=== PATIENT | female | born 1980 | race Caucasian/White ===

== ENCOUNTER 2016-06-04 18:12 | Emergency (ER) | payer BC ==
[2016-06-04 18:28] VITALS: TEMP 96.7
[2016-06-04] MEDS ORDERED: HYDROmorphone 2 MG/1 ML IVP ONE ×2 (18:29→20:16)
[2016-06-04] MEDS ORDERED: ONDANSETRON 4 MG/2 ML VIAL IVP ONE (18:29)
[2016-06-04] MEDS ORDERED: Sodium Chloride 0.9% 1,000 ML PRIMARY IV ONE (18:29)
--- NOTE | 2016-06-04 18:36 | PDOC ---
Female Problem HPI - General Chief Complaint: Genitourinary Complaint Stated Complaint: LEFT FLANK PAIN/PAINFUL URINATION AND NAUSEA Date Seen by Provider: 06/04/16 Time Seen by Provider: 18:31 Source: POSITIVE: Patient Exam Limitations: POSITIVE: No limitations Nurse's Notes Reviewed & Considered: Yes - History of Present Illness Initial Comments: Patient comes in tonight with complaints of left-sided CVA pain and dysuria with hematuria. She with ongoing history of urological problems. She was seen here in the emergency room last February and followed up with a urologist. She states that he had to remove kidney stones. She saw her primary care physician 12 days ago and was started on a 10 day course of Augmentin which she has finished. She continues to have pain, dysuria, chills, nausea. Body Location Affected: REPORTS: Abdomen, Back Timing: REPORTS: Constant Duration: Unknown Severity: Severe Quality: REPORTS: "Pain", Sharpness, Stabbing, Throbbing, Tenderness Context: REPORTS: Other (Known urological problems including nephro lithiasis, and chronic urinary tract infections with hematuria.) Location of Pain: REPORTS: Left, Abdominal Pain, Low Back Pain, Flank Pain Sexual History: REPORTS: Active Urinary Symptoms: REPORTS: Blood in Urine, Frequent Urination, Discomfort w/ Urination, Urinary Urgency, Painful Urination Similar Symptoms Previously: Yes Recent Care Received: REPORTS: Recently Seen, Treated by MD Any Prior Injuries Related to Current Complaint?: Yes (nephrolithiasis) - Patient Home Medications Home Medications: Home Medications Albuterol Sulfate [Proair Hfa] 2 puff INH Q4H 02/06/16 oxyCODONE/APAP 5/325 Tab [Percocet 5/325 Tab] 2 tab PO Q6H PRN 02/06/16 - Patient Allergies Allergies/Adverse Reactions: Allergies Allergy/AdvReac Type Severity Reaction Status Date / Time fentanyl Allergy NOT Verified 06/04/16 18:16 APPLICABLE Latex, Natural Rubber Allergy NOT Verified 06/04/16 18:16 APPLICABLE Past Medical History - heen HEENT History: Denies History Cardiovascular History: Denies History Respiratory History: Asthma Gastrointestinal History: Other (please comment) Additional Gastrointestinal History: APPY. SOFIYA Genitourinary History: Kidney Stones, Other (please comment) Additional Genitourinary History: CHRONIC KIDNEY INFECTIONS. RENAL STENTING. LITHO Endocrine History: Denies History Musculoskeletal History: Denies History Neurological History: Denies History Blood Disorders: Denies History Psychiatric History: Denies History History of Sexually Transmitted Diseases: No Female Reproductive History: Endometriosis Obstetrical History: Denies History Cancer History: Denies History In Past Year Been Physically Harmed or Verbally Threatened: No History of MDRO: No History of Other Communicable Diseases: No Tobacco Use: Current Every Day Smoker Alcohol Use: None Substance Use Type: None Previous Surgical History: Yes Type / Date of Surgery: HYSTER. LITHO. SOFIYA. MULTIPLE RENAL STENTS. APPY Anesthesia Reactions: No Malignant Hyperthermia: No Significant Family History: No pertinent family hx ROS - Limitations ROS Limitations: No Limitations Constitution: REPORTS: Chills, Diaphoresis Cardiovascular: REPORTS: Denies Cardiac Symptoms Respiratory: REPORTS: Denies Resp Symptoms Neurological: REPORTS: Denies Neuro Symptoms Gastrointestinal: REPORTS: Abdominal Pain, Nausea Endocrine: REPORTS: Denies Symptoms Musculoskeletal: REPORTS: Back Pain Genitourinary: REPORTS: Dysuria, Flank Pain, Hematuria Eyes: REPORTS: Denies Symptoms ENT: REPORTS: Denies Symptoms Skin: REPORTS: Denies Skin Symptoms Lympathic: REPORTS: Denies Lympathic Symptoms Immunologic: POSITIVE: Denies Symptoms Psychiatric: POSITIVE: Denies Psych Symptoms Female Genitourinary Exam - General Appearance General Appearance: POSITIVE: Alert, Cooperative, No Evidence of Trauma, Anxious , Moderate Distress - HEENT HEENT: POSITIVE: Head Inspection Nml, Eyes Inspection Nml, Ears Inspection Nml, Nose Inspection Nml, PERRL, EOMI - Neck Neck: POSITIVE: Normal Inspection, No Apparent Injury - Respiratory Respiratory: POSITIVE: No Respiratory Distress, Breath Sounds Normal, Chest Non- Tender - Cardiovascular Cardiovascular: POSITIVE: Regular Rate and Rhythm, Heart Sounds Normal - Abdomen Abdomen: POSITIVE: Soft, Normal Bowel Sounds, Tenderness (Suprapubic tenderness and sensation of pressure to palpation.) - Back Back: POSITIVE: CVA Tenderness (L) - Skin Skin: POSITIVE: Intact, Normal For Race, Warm, Dry, No Rash - Extremities Extremity: Non-Tender: (All Extremities), Normal ROM: (All Extremities), Normal Inspection: (All Extremities), Pelvis Stable: (All Extremities) - Neurological / Psychological Neurological: POSITIVE: Affect Apporpriate, Oriented X3 Female Genitourinary Progress - Results Reviewed by me Xrays/CTs/US Reviewed by me: Yes Discussed with Radiologist: Yes Lab Results:: Laboratory Results 06/04/16 Range/Units 18:53 WBC 12.96 H (4.8-10.8) 10^3/uL RBC 4.74 (4.20-5.40) 10^6/uL Hgb 15.3 (12.0-16.0) g/dL Hct 46.2 (37.0-47.0) % MCV 97.5 (81-99) FL MCH 32.3 H (27-31) PG MCHC 33.1 (33-37) g/dL RDW Std Deviation 51.5 H (39-50) fL RDW Coeff of Muna 14.7 H (11.5-14.5) % Plt Count 323 (140-350) 10*3/uL MPV 9.7 (7.4-12.2) FL Immature Gran % (Auto) 0.5 (0-5) % Neut % (Auto) 77.6 (50-80) % Lymph % (Auto) 15.7 (10-50) % Citrus % (Auto) 5.2 (5-15) % Eos % (Auto) 0.8 (0-8) % Baso % (Auto) 0.2 (0-1) % Immature Gran # (Auto) 0.07 10*3/UL Neut # (Auto) 10.07 10*3/UL Lymph # (Auto) 2.03 10*3/uL Citrus # (Auto) 0.67 (0.3-0.8) 10*3/UL Eos # (Auto) 0.10 10*3/UL Baso # (Auto) 0.02 10*3/UL WBC Morphology Comment Normal morphology (NORM) Plt Morphology Comment Normal morphology (NORM) RBC Morph Comment Normal morphology (NORM) Sodium 141 (135-145) meq/L Potassium 3.4 L (3.8-5.2) meq/L Chloride 117 H (98-112) meq/L Carbon Dioxide 13 L (23-33) meq/L Anion Gap 11 (5-20) BUN 15 (7-22) mg/dL Creatinine 1.1 (0.50-1.20) mg/dL Estimated GFR 56 (>60 ml/min/1.73m(2)) BUN/Creatinine Ratio 13.63 (6-20) Glucose 151 H (78-110) mg/dL Calculated Osmolality 295.0 H (267-292) mOsm/kg Calcium 9.5 (8.7-10.7) mg/dL Total Bilirubin 0.4 (0.3-1.2) mg/dL AST 15 (8-39) IU/L ALT 8 L (9-52) IU/L Alkaline Phosphatase 147 H (38-126) IU/L C-Reactive Protein < 0.5 (0.0-0.9) mg/dL Total Protein 7.7 (6.1-8.0) g/dL Albumin 4.6 (3.5-4.8) g/dL Globulin 3.1 (2.50-4.10) g/dL Albumin/Globulin Ratio 1.40 (1.3-2.0) mg/g Ur Collection Type Clean catch urine Urine Color Yellow Urine Clarity Slightly cloudy (CLEAR) Urine pH 6.5 (5.0-8.5) Ur Specific [place] 1.020 (1.005-1.030) Urine Protein 100 (NEG) mg/dl Urine Glucose (UA) Negative (NEG) mg/dL Urine Ketones Negative (NEG) Urine Occult Blood Moderate H (NEG) Urine Nitrate Negative (NEG) Urine Bilirubin Negative (NEG) Urine Urobilinogen 0.2 (0.2) EU/dL Ur Leukocyte Esterase Negative (NEG) Urine RBC >100 (NONE) /hpf Urine WBC 8-10 (NONE) Ur Squamous Epith Cells Rare (NONE) Ur Renal Epithelial Cell None (NONE) Urine Crystals None Urine Bacteria Moderate (NONE) Urine Casts None (NONE) Urine Mucus None (NONE) Urine Trichomonas None (NONE) Urine Yeast None (NONE) Ur Culture Indicated? Culture set - Patient's Progress Pain Medication Addressed: POSITIVE: Yes School/Work Release Addressed: POSITIVE: Yes Re-Examine Time: 21:11 Status: POSITIVE: Improved MDM / ED Course: The patient was examined, an IV started, blood drawn and sent to the lab for studies, ultrasound obtained. IV Dilaudid, Zofran, and normal saline. Her pain significantly improved. Findings: CBC shows a slight elevation of her white count to 13, compressive metabolic panel is unremarkable, urinalysis shows a contaminated pattern. Ultrasound reveals a normal ultrasound of kidneys and bladder. Next Assessment: Abdominal and flank pain. Differential diagnosis includes #1 cystitis, #2 chronic urinary tract infection subclinical, #3 renal colic. Plan: Discharge home. Follow-up with urology calling tomorrow for follow-up appointment. I do not feel antibiotics are indicated in this patient, particularly if she has a colonized urinary system. - Consult Counseled: POSITIVE: Patient, Family, RE: Lab Results, RE: Radiology Results, RE : DX, RE: Need for F/U Patient Care Time - Estimated PCT Patient Care Time (In Minutes): 30 Vital Signs - Recent Vital Signs Vital Signs: Vital Signs (Last 8 hours) Temp Pulse Resp BP Pulse Ox 06/04/16 18:16 96.7 F L 130 H 20 126/82 92 - VS Reviewed Vital Signs Reviewed: Yes Discharge Clinical Impression: Cystitis, Flank pain Discharge Disposition: Discharged to Home Condition: Stable Patient Instructions Given at Discharge: Pelvic Pain in Women (ED), Interstitial Cystitis (ED)
[2016-06-04 18:56] LABS: BASOPHILS # (AUTO) 0.02 10*3/UL; BASOPHILS % (AUTO) 0.2 % (0-1); EOSINOPHILS % (AUTO) 0.8 % (0-8); HEMATOCRIT 46.2 % (37.0-47.0); HEMOGLOBIN 15.3 g/dL (12.0-16.0); LYMPHOCYTES # (AUTO) 2.03 10*3/uL; MEAN CORPUSCULAR HEMOGLOBIN 32.3 PG (27-31); MEAN CORPUSCULAR HGB CONC 33.1 g/dL (33-37); MEAN CORPUSCULAR VOLUME 97.5 FL (81-99); MEAN PLATELET VOLUME 9.7 FL (7.4-12.2); MONOCYTES # (AUTO) 0.67 10*3/UL (0.3-0.8); MONOCYTES % (AUTO) 5.2 % (5-15); NEUTROPHILS # (AUTO) 10.07 10*3/UL; NEUTROPHILS % (AUTO) 77.6 % (50-80); RED BLOOD COUNT 4.74 10^6/uL (4.20-5.40)
[2016-06-04 19:08] LABS: BLOOD UREA NITROGEN 15 mg/dL (7-22); BUN/CREATININE RATIO 13.63 (6-20); CALCIUM 9.5 mg/dL (8.7-10.7); EST GLOMERULAR FILTRATION 56 (>60 ml/min/1.73m(2)); SERUM ALBUMIN 4.6 g/dL (3.5-4.8)
[2016-06-04 19:12] LABS: CLARITY,URINE SLIGHTLY CLOUDY (CLEAR); COLOR,URINE YELLOW; URINE SAMPLE TYPE CLEAN CATCH URINE
[2016-06-04 19:21] LABS: PH,URINE 6.5 (5.0-8.5); PROTEIN,URINE 100 mg/dl (NEG)
[2016-06-04 19:22] LABS: BILIRUBIN,URINE NEGATIVE (NEG); GLUCOSE, URINE (UA) NEGATIVE (NEG); NITRATE,URINE NEGATIVE (NEG); OCCULT BLOOD,URINE MODERATE (NEG); UROBILINOGEN,URINE 0.2 EU/dL (0.2)
[2016-06-04 19:23] LABS: BACTERIA,URINE MODERATE; RBC,URINE >100 /hpf; SQUAMOUS EPITHELIAL CELL,UR RARE
[2016-06-04 19:26] LABS: PLATELET MORPHOLOGY COMMENT NORMAL MORPHOLOGY (NORM); RBC MORPHOLOGY COMMENT NORMAL MORPHOLOGY (NORM); WBC MORPHOLOGY COMMENT NORMAL MORPHOLOGY (NORM)
[2016-06-04 19:27] LABS: C-REACTIVE PROTEIN < 0.5 mg/dL (0.0-0.9)
--- NOTE | 2016-06-04 20:49 | DI ---
HISTORY: Left flank discomfort. PREVIOUS EXAM: None at this facility. TECHNIQUE: Multiple grayscale and color Doppler sonographic images are obtained through the abdomen. FINDINGS: The pancreas is not well seen. The patient is status post cholecystectomy. The liver is within normal limits. The common bile duct measured 5 mm. Right kidney measured 10.5 cm in length with a normal sonographic appearance. The spleen was grossly normal. The left kidney measured 10.2 cm in length also with a normal sonographic appearance. There is no hyd ronephrosis nor nephrolithiasis. IMPRESSION: 1. Normal abdominal ultrasound. NOTE: The interpreting Radiologist was not present at the time of ultrasound interrogation.
[2016-06-04 21:34] VITALS: RESP 18
== END 2016-06-04 21:28 | disposition home or self-care (01) ==
LOC: ER 18:12
DX: N30.01 Acute cystitis with hematuria (principal); R11.0 Nausea; R10.32 Left lower quadrant pain; R10.12 Left upper quadrant pain; R30.0 Dysuria
CPT/HCPCS: 76700; 80053; 81001; 81003; 85025; 86140; 87077; 87088; 87186; 96361; 96374; 96375; 96376; 99283; J1170; J2405; J7030

== ENCOUNTER 2017-02-01 22:29 | Inpatient (IN) ==
[2017-02-01] MEDS ORDERED: ONDANSETRON 4 MG/2 ML VIAL IVP ONE (22:48)
[2017-02-01] MEDS ORDERED: Sodium Chloride 0.9% 1,000 ML PRIMARY IV ONE (22:48)
[2017-02-01] MEDS ORDERED: MORPHINE SULFATE 4 MG/1 ML IVP ONE (22:48)
[2017-02-01] MEDS ORDERED: NORMAL SALINE 10 ML SYRINGE FLUSH IVP PRN (22:48)
--- NOTE | 2017-02-01 22:50 | PDOC ---
Abdomen/Flank HPI - General Chief Complaint: Genitourinary Complaint Stated Complaint: kidney stone Date Seen by Provider: 02/01/17 Time Seen by Provider: 22:45 Source: POSITIVE: Patient Exam Limitations: POSITIVE: No limitations Nurse's Notes Reviewed & Considered: Yes - History of Present Illness Initial Comments: The patient is a 36-year-old female who presents to the emergency department with complaints of left flank pain and decreased urination. She has a history of kidney stones multiple times in the past. In addition she has had frequent urinary tract infections and kidney infections. She recently just finished a course of antibiotics for urinary tract infection. She reports that she has developed increased left flank pain today. In addition she reports decreased urination today and has not had any significant urine output since about 11:00 this morning. She reports nausea and vomiting which is not too unusual for her. She denies any obvious fever or chills. She has not had any change in bowel movements. - Patient Home Medications Home Medications: Home Medications Albuterol Sulfate [Proair Hfa] 2 puff INH Q4H 02/06/16 oxyCODONE/APAP 5/325 Tab [Percocet 5/325 Tab] 2 tab PO Q6H PRN 02/06/16 Ondansetron HCl [Zofran] 8 mg PO PRN PRN 12/29/16 Zolpidem Tartrate [Ambien] 5 mg PO BEDTIME 12/29/16 diphenhydrAMINE HCl [Benadryl] 25 mg PO PRN PRN 12/29/16 Ciprofloxacin HCl [Cipro] 500 mg PO Q12H #20 tab 12/30/16 HYDROcodone/APAP 10/325 Tab [Wilson 10/325 Tab] 1 tab PO Q4H PRN #20 tab Ondansetron Odt [Zofran ODT] 4 mg SL Q6H PRN #20 tab 12/30/16 Potassium Chloride 20 mEq 20 meq IV QHS #30 bag 12/30/16 - Patient Allergies Allergies/Adverse Reactions: Allergies 3 Allergy/AdvReac Type Severity Reaction Status Date / Time fentanyl Allergy NOT Verified 02/02/17 00:10 APPLICABLE ibuprofen Allergy NOT Verified 02/02/17 00:10 APPLICABLE ketorolac [From Toradol] Allergy NOT Verified 02/02/17 00:10 APPLICABLE Latex, Natural Rubber Allergy NOT Verified 02/02/17 00:10 APPLICABLE Past Medical History - heen HEENT History: Denies History Cardiovascular History: Denies History Respiratory History: Asthma Gastrointestinal History: Other (please comment) Additional Gastrointestinal History: APPY. SOFIYA Genitourinary History: Kidney Stones, Other (please comment) Additional Genitourinary History: CHRONIC KIDNEY INFECTIONS. RENAL STENTING. LITHOTRIPSY Endocrine History: Denies History Musculoskeletal History: Denies History Neurological History: Denies History Blood Disorders: Denies History Psychiatric History: Denies History History of Sexually Transmitted Diseases: No Cancer History: Denies History History of MDRO: No History of Other Communicable Diseases: No Alcohol Use: None In the Past 12 Months, Have Used or Abuse Any Substance: None Previous Surgical History: Yes Type / Date of Surgery: HYSTER. LITHO. SOFIYA. MULTIPLE RENAL STENTS. APPY Anesthesia Reactions: No Malignant Hyperthermia: No Significant Family History: No pertinent family hx Past Medical History Reviewed: Reviewed - No Changes ROS - Limitations ROS Limitations: No Limitations Constitution: DENIES: Chills, Fever Cardiovascular: REPORTS: Denies Cardiac Symptoms Respiratory: REPORTS: Denies Resp Symptoms Neurological: REPORTS: Denies Neuro Symptoms Gastrointestinal: REPORTS: Nausea, Vomitting, Other (Left flank pain) Endocrine: REPORTS: Denies Symptoms Musculoskeletal: REPORTS: Denies MS Symptoms Genitourinary: REPORTS: Other (Decreased urination since 11:00 today) Eyes: REPORTS: Denies Symptoms ENT: REPORTS: Denies Symptoms Skin: DENIES: Rash Abdominal/Flank Pain PE - General Appearance General Appearance: POSITIVE: Alert, Cooperative, No Acute Distress - HEENT HEENT: POSITIVE: Head Inspection Nml - Neck Neck: POSITIVE: Normal Inspection - Respiratory Respiratory: POSITIVE: No Respiratory Distress, Breath Sounds Normal - Cardiovascular Cardiovascular: POSITIVE: Regular Rate and Rhythm, Heart Sounds Normal - Abdomen Abdomen: Soft: (All Quadrants), Normal Bowel Sounds: (All Quadrants), Denies Tenderness: (All Quadrants), No Distention: (All Quadrants) - Back Back: POSITIVE: CVA Tenderness (L). NEGATIVE: CVA Tenderness (R) - Skin Skin: POSITIVE: Intact, No Rash - Extremities Extremity: Normal ROM: (All Extremities), Normal Inspection: (All Extremities) - Neurological Neurological: POSITIVE: Oriented X3, Motor Normal, Sensation Normal Abdomen Progress - Results Reviewed by me Xrays/CTs/US Reviewed by me: Yes Discussed with Radiologist: Yes Radiology Findings: CT scan of the abdomen and pelvis without IV contrast reveals multiple stones in both kidneys, she does have a 3 mm stone in the proximal right ureter with mild hydronephrosis, no obstructive uropathy in the left. No obvious inflammatory change in the pancreas and no other acute findings per radiologist. Lab Results Reviewed by Me: Yes CBC and BMP: 02/01/17 23:10 02/01/17 23:10 - Patient's Progress MDM / ED Course: An IV was established, blood cultures and lactate were drawn with initial IV start. She received morphine 4 mg and Zofran 4 mg IV for pain. Bladder scanner showed greater than a liter of urine in the bladder and a Molina catheter was placed as well. Over 1 L of urine was evacuated from the bladder. This did result in fairly significant pain relief. Her white blood cell count is mildly elevated, her urinalysis reveals moderate bacteria, some white blood cells and some blood. Urine culture is pending. In addition her lipase is elevated over 700, amylase is also elevated. CT scan of the abdomen and pelvis without IV contrast reveals a 3 mm stone in the proximal right ureter with mild hydronephrosis. She has bilateral kidney stones. No obvious inflammatory change in the pancreas, no other acute findings per radiologist. The patient has several issues currently. She did have urinary obstruction and a Molina catheter has been placed. She does have elevated pancreas enzymes with a history of pancreatitis last year. In addition she does have a small stone in the right ureter with mild hydronephrosis. She does not have any right- sided flank pain or tenderness as her pain was mostly on the left side. There is some evidence of infection in the urine as well. She was given Rocephin 2 g IV. Findings were discussed with the patient. Decision was made to admit the patient for further treatment and evaluation. Dr. Stephens has agreed to admit the patient. Patient Care Time - Estimated PCT Patient Care Time (In Minutes): 45 Vital Signs - VS Reviewed Vital Signs Reviewed: Yes Discharge Clinical Impression: Urinary retention, Ureterolithiasis, Pancreatitis, UTI (urinary tract infection ) Discharge Disposition: Admit to Inpatient Condition: Fair Date Decision to Admit to Inpatient: 02/02/17 Time Decision to Admit to Inpatient: 00:20
[2017-02-01 23:26] LABS: BILIRUBIN,URINE NEGATIVE (NEG); CLARITY,URINE Slightly Cloudy (CLEAR); COLOR,URINE YELLOW (Y); GLUCOSE, URINE (UA) NEGATIVE (NEG); NITRATE,URINE NEGATIVE (NEG); OCCULT BLOOD,URINE MODERATE (NEG); PH,URINE 6.5 (5.0-8.5); PROTEIN,URINE 100 mg/dl (NEG); UROBILINOGEN,URINE 0.2 EU/dL (0.2)
[2017-02-01 23:29] LABS: Hematocrit [HCT] 43.2 % (37.0-47.0); Hemoglobin [HGB] 14.2 g/dL (12.0-16.0); MEAN CORPUSCULAR HEMOGLOBIN 33.7 PG (27-31); MEAN CORPUSCULAR HGB CONC 32.8 g/dL (33-37); MEAN CORPUSCULAR VOLUME 103 FL (81-99)
[2017-02-01 23:30] LABS: BASOPHILS % (AUTO) 0.8 % (0-1); EOSINOPHILS # (AUTO) 0.32 10*3/UL; EOSINOPHILS % (AUTO) 2.6 % (0-8); LYMPHOCYTES # (AUTO) 2.72 10*3/uL; MEAN PLATELET VOLUME 7.4 FL (7.4-12.2); MONOCYTES # (AUTO) 0.99 10*3/UL (0.3-0.8); MONOCYTES % (AUTO) 8.2 % (5-15); PLATELET MORPHOLOGY COMMENT NORMAL MORPHOLOGY (NORM); RBC MORPHOLOGY COMMENT NORMAL MORPHOLOGY (NORM); WBC MORPHOLOGY COMMENT NORMAL MORPHOLOGY (NORM)
[2017-02-01 23:31] LABS: BUN/CREATININE RATIO 13.57 (6-20); SERUM ALBUMIN 4.3 g/dL (3.5-4.8)
[2017-02-01 23:35] LABS: URINE SAMPLE TYPE CATH SPECIMEN
[2017-02-01 23:36] LABS: BACTERIA,URINE MODERATE; SQUAMOUS EPITHELIAL CELL,UR FEW; URINE CRYSTALS MANY
[2017-02-01 23:39] LABS: AMPHETAMINE SCREEN NEGATIVE (NEG); CANNABINOID SCREEN,URINE NEGATIVE (NEG); COCAINE SCREEN NEGATIVE (NEG); METHADONE URINE SCREEN NEGATIVE (NEG); METHAMPHETAMINES SCREEN,URINE NEGATIVE (NEG); OPIATE SCREEN,URINE NEGATIVE (NEG); URINE SAMPLE TYPE CATH SPECIMEN
--- NOTE | 2017-02-01 23:47 | DI ---
EXAM: CT Abdomen and Pelvis Without Intravenous Contrast CLINICAL HISTORY: Physician Notes: Tech Comments: TECHNIQUE: Axial computed tomography images of the abdomen and pelvis without intravenous contrast. Coronal and sagittal reformatted images were created and reviewed. COMPARISON: No relevant prior studies available. FINDINGS: Lower thorax: No acute findings. ABDOMEN: Liver: Unremarkable. Gallbladder and bile ducts: Cholecystectomy. No ductal dilation. Pancreas: Unremarkable. No ductal dilation. Spleen: Unremarkable. No splenomegaly. Adrenals: Unremarkable. No mass. Kidneys and ureters: 3 mm stone in the proximal right ureter with mild upstream hydronephrosis. At least 4 nonobstructing right renal stones measuring up to 4 mm. Scattered nonobstructing left renal stones measuring up to 5 mm. Stomach and bowel: Unremarkable. No obstruction. No mucosal thickening. Appendix: Suture line at the cecum, likely from previous appendectomy. PELVIS: Bladder: Molina catheter. No stones. Reproductive: Unremarkable as visualized. ABDOMEN and PELVIS: Intraperitoneal space: Unremarkable. No free air. No significant fluid collection. Bones/joints: No acute fracture. No dislocation. Soft tissues: No acute findings. Vasculature: Unremarkable. No abdominal aortic aneurysm. Lymph nodes: Unremarkable. No enlarged lymph nodes. IMPRESSION: 1. 3 mm stone in the proximal right ureter causing mild upstream hydronephrosis. 2. Scattered bilateral nonobstructing renal stones.
[2017-02-02] MEDS ORDERED: cefTRIAXone Inj 2 GM in Sodium Chloride 0.9% 100 ML IV ONE (00:14)
--- NOTE | 2017-02-02 00:32 | PDOC ---
HPI - History of Present Illness History of Present Illness: Final Discharge Diagnosis: Current Visit Problems Problem Status Onset Code Urinary tract infection Acute N39.0 Stone in kidney Acute N20.0 CHRIS (acute kidney injury) Acute N17.9 Urinary retention Acute R33.9 Ureterolithiasis Acute N20.1 Pancreatitis Acute K85.90 Diagnostic Data, Laboratory Data, and Procedures of Signifigance: Laboratory Results 02/01/17 02/01/17 02/01/17 Range/Units 23:10 23:10 23:10 WBC 12.1 H (4.8-10.8) 10^3/uL RBC 4.20 (4.20-5.40) 10^6/uL Hgb 14.2 (12.0-16.0) g/dL Hct 43.2 (37.0-47.0) % MCV 103 H (81-99) FL MCH 33.7 H (27-31) PG MCHC 32.8 L (33-37) g/dL RDW Coeff of Muna 12.4 (11.5-14.5) % Plt Count 284 (140-350) 10*3/uL MPV 7.4 (7.4-12.2) FL Neut % (Auto) 66.0 (50-80) % Lymph % (Auto) 22.4 (10-50) % Arthur % (Auto) 8.2 (5-15) % Eos % (Auto) 2.6 (0-8) % Baso % (Auto) 0.8 (0-1) % Neut # (Auto) 8.00 10*3/UL Lymph # (Auto) 2.72 10*3/uL Arthur # (Auto) 0.99 H (0.3-0.8) 10*3/UL Eos # (Auto) 0.32 10*3/UL Baso # (Auto) 0.10 10*3/UL WBC Morphology Comment Normal morphology (NORM) Plt Morphology Comment Normal morphology (NORM) RBC Morph Comment Normal morphology (NORM) Sodium 150 H (135-145) meq/L Potassium 3.3 L (3.8-5.2) meq/L Chloride 121 H (98-112) meq/L Carbon Dioxide 14 L (23-33) meq/L Anion Gap 15 (5-20) BUN 19 (7-22) mg/dL Creatinine 1.4 H (0.50-1.20) mg/dL Estimated GFR 42 (>60 ml/min/1.73m(2)) BUN/Creatinine Ratio 13.57 (6-20) Glucose 109 (78-110) mg/dL Calculated Osmolality 312.0 H (267-292) mOsm/kg Lactic Acid (0.70-2.10) MMOL/L Calcium 9.0 (8.7-10.7) mg/dL Total Bilirubin 0.3 (0.3-1.2) mg/dL AST 56 H (8-39) IU/L ALT 30 (9-52) IU/L Alkaline Phosphatase 125 (38-126) IU/L C-Reactive Protein 0.5 (0.0-0.9) mg/dL Total Protein 7.3 (6.1-8.0) g/dL Albumin 4.3 (3.5-4.8) g/dL Globulin 3.0 (2.50-4.10) g/dL Albumin/Globulin Ratio 1.40 (1.3-2.0) mg/g Amylase 147 H (30-110) U/L Lipase 754 H (23-300) IU/L Serum HCG, Qual Negative Ur Collection Type Urine Color (Y) Urine Clarity (CLEAR) Urine pH (5.0-8.5) Ur Specific Harper (1.005-1.030) U Specif Grav (Refrac) Urine Protein (NEG) mg/dl Urine Glucose (UA) (NEG) mg/dL Urine Ketones (NEG) Urine Occult Blood (NEG) Urine Nitrate (NEG) Urine Bilirubin (NEG) Urine Urobilinogen (0.2) EU/dL Ur Leukocyte Esterase (NEG) Urine RBC (NONE) /hpf Urine WBC (NONE) Ur Squamous Epith Cells (NONE) Ur Renal Epithelial Cell (NONE) Urine Crystals Urine Bacteria (NONE) Urine Casts (NONE) Urine Mucus (NONE) Urine Trichomonas (NONE) Urine Yeast (NONE) Ur Culture Indicated? Urine Opiates Screen (NEG) Ur Buprenorphine (NEG) Ur Oxycodone Screen (NEG) Urine Methadone Screen (NEG) Ur Propoxyphene Screen (NEG) Barbiturate Screen (NEG) U Tricyclic Antidepress (NEG) Phencyclidine Screen (NEG) Amphetamines Screen (NEG) U Methamphetamines Scrn (NEG) Benzodiazepines Screen (NEG) Cocaine Screen (NEG) U Marijuana (THC) Screen (NEG) 02/01/17 02/01/17 02/01/17 Range/Units 23:10 23:20 23:20 WBC (4.8-10.8) 10^3/uL RBC (4.20-5.40) 10^6/uL Hgb (12.0-16.0) g/dL Hct (37.0-47.0) % MCV (81-99) FL MCH (27-31) PG MCHC (33-37) g/dL RDW Coeff of Muna (11.5-14.5) % Plt Count (140-350) 10*3/uL MPV (7.4-12.2) FL Neut % (Auto) (50-80) % Lymph % (Auto) (10-50) % Arthur % (Auto) (5-15) % Eos % (Auto) (0-8) % Baso % (Auto) (0-1) % Neut # (Auto) 10*3/UL Lymph # (Auto) 10*3/uL Arthur # (Auto) (0.3-0.8) 10*3/UL Eos # (Auto) 10*3/UL Baso # (Auto) 10*3/UL WBC Morphology Comment (NORM) Plt Morphology Comment (NORM) RBC Morph Comment (NORM) Sodium (135-145) meq/L Potassium (3.8-5.2) meq/L Chloride (98-112) meq/L Carbon Dioxide (23-33) meq/L Anion Gap (5-20) BUN (7-22) mg/dL Creatinine (0.50-1.20) mg/dL Estimated GFR (>60 ml/min/1.73m(2)) BUN/Creatinine Ratio (6-20) Glucose (78-110) mg/dL Calculated Osmolality (267-292) mOsm/kg Lactic Acid 1.1 (0.70-2.10) MMOL/L Calcium (8.7-10.7) mg/dL Total Bilirubin (0.3-1.2) mg/dL AST (8-39) IU/L ALT (9-52) IU/L Alkaline Phosphatase (38-126) IU/L C-Reactive Protein (0.0-0.9) mg/dL Total Protein (6.1-8.0) g/dL Albumin (3.5-4.8) g/dL Globulin (2.50-4.10) g/dL Albumin/Globulin Ratio (1.3-2.0) mg/g Amylase (30-110) U/L Lipase (23-300) IU/L Serum HCG, Qual Ur Collection Type Cath specimen Cath specimen Urine Color Yellow (Y) Urine Clarity Slightly cloudy (CLEAR) Urine pH 6.5 (5.0-8.5) Ur Specific Harper 1.020 (1.005-1.030) U Specif Grav (Refrac) 1.020 Urine Protein 100 A (NEG) mg/dl Urine Glucose (UA) Negative (NEG) mg/dL Urine Ketones Negative (NEG) Urine Occult Blood Moderate H (NEG) Urine Nitrate Negative (NEG) Urine Bilirubin Negative (NEG) Urine Urobilinogen 0.2 (0.2) EU/dL Ur Leukocyte Esterase Trace (NEG) Urine RBC 15-24 A (NONE) /hpf Urine WBC 4-8 H (NONE) Ur Squamous Epith Cells Few (NONE) Ur Renal Epithelial Cell None (NONE) Urine Crystals Many Urine Bacteria Moderate H (NONE) Urine Casts None (NONE) Urine Mucus None (NONE) Urine Trichomonas None (NONE) Urine Yeast None (NONE) Ur Culture Indicated? Culture set Urine Opiates Screen Negative (NEG) Ur Buprenorphine Negative (NEG) Ur Oxycodone Screen Negative (NEG) Urine Methadone Screen Negative (NEG) Ur Propoxyphene Screen Negative (NEG) Barbiturate Screen Negative (NEG) U Tricyclic Antidepress Negative (NEG) Phencyclidine Screen Negative (NEG) Amphetamines Screen Negative (NEG) U Methamphetamines Scrn Negative (NEG) Benzodiazepines Screen Negative (NEG) Cocaine Screen Negative (NEG) U Marijuana (THC) Screen Negative (NEG) 02/02/17 02/02/17 Range/Units 06:03 06:03 WBC 10.6 (4.8-10.8) 10^3/uL RBC 3.78 L (4.20-5.40) 10^6/uL Hgb 12.9 (12.0-16.0) g/dL Hct 38.5 (37.0-47.0) % MCV 102 H (81-99) FL MCH 34.1 H (27-31) PG MCHC 33.5 (33-37) g/dL RDW Coeff of Muna 12.5 (11.5-14.5) % Plt Count 249 (140-350) 10*3/uL MPV 7.9 (7.4-12.2) FL Neut % (Auto) 56.6 (50-80) % Lymph % (Auto) 31.9 (10-50) % Arthur % (Auto) 8.4 (5-15) % Eos % (Auto) 2.3 (0-8) % Baso % (Auto) 0.8 (0-1) % Neut # (Auto) 6.02 10*3/UL Lymph # (Auto) 3.39 10*3/uL Arthur # (Auto) 0.89 H (0.3-0.8) 10*3/UL Eos # (Auto) 0.24 10*3/UL Baso # (Auto) 0.09 10*3/UL WBC Morphology Comment Normal morphology (NORM) Plt Morphology Comment Normal morphology (NORM) RBC Morph Comment Normal morphology (NORM) Sodium 150 H (135-145) meq/L Potassium 3.5 L (3.8-5.2) meq/L Chloride 124 H (98-112) meq/L Carbon Dioxide 16 L (23-33) meq/L Anion Gap 10 (5-20) BUN 16 (7-22) mg/dL Creatinine 1.0 (0.50-1.20) mg/dL Estimated GFR > 60 (>60 ml/min/1.73m(2)) BUN/Creatinine Ratio 16.00 (6-20) Glucose 81 (78-110) mg/dL Calculated Osmolality 309.0 H (267-292) mOsm/kg Lactic Acid (0.70-2.10) MMOL/L Calcium 7.9 L (8.7-10.7) mg/dL Total Bilirubin 0.1 L D (0.3-1.2) mg/dL AST 18 (8-39) IU/L ALT 29 (9-52) IU/L Alkaline Phosphatase 106 (38-126) IU/L C-Reactive Protein (0.0-0.9) mg/dL Total Protein 5.9 L (6.1-8.0) g/dL Albumin 3.4 L (3.5-4.8) g/dL Globulin 2.5 (2.50-4.10) g/dL Albumin/Globulin Ratio 1.30 (1.3-2.0) mg/g Amylase (30-110) U/L Lipase 350 H (23-300) IU/L Serum HCG, Qual Ur Collection Type Urine Color (Y) Urine Clarity (CLEAR) Urine pH (5.0-8.5) Ur Specific Harper (1.005-1.030) U Specif Grav (Refrac) Urine Protein (NEG) mg/dl Urine Glucose (UA) (NEG) mg/dL Urine Ketones (NEG) Urine Occult Blood (NEG) Urine Nitrate (NEG) Urine Bilirubin (NEG) Urine Urobilinogen (0.2) EU/dL Ur Leukocyte Esterase (NEG) Urine RBC (NONE) /hpf Urine WBC (NONE) Ur Squamous Epith Cells (NONE) Ur Renal Epithelial Cell (NONE) Urine Crystals Urine Bacteria (NONE) Urine Casts (NONE) Urine Mucus (NONE) Urine Trichomonas (NONE) Urine Yeast (NONE) Ur Culture Indicated? Urine Opiates Screen (NEG) Ur Buprenorphine (NEG) Ur Oxycodone Screen (NEG) Urine Methadone Screen (NEG) Ur Propoxyphene Screen (NEG) Barbiturate Screen (NEG) U Tricyclic Antidepress (NEG) Phencyclidine Screen (NEG) Amphetamines Screen (NEG) U Methamphetamines Scrn (NEG) Benzodiazepines Screen (NEG) Cocaine Screen (NEG) U Marijuana (THC) Screen (NEG) History and Physical pertinent to Admission: Course of Hospitalization: This very nice 36-year-old female with a past medical history of frequent UTIs and multiple kidney stones. Just finished a course of Cipro from a primary care physician. Comes into the hospital complaining of left flank pain and workup revealed the right ureteral kidney stone obstruction of 3 mm with mild hydronephrosis patient also had low urine output and she was bladder scanned she had 400 mL in her bladder Molina catheter was inserted and did urine outflow obtained. Lipase and 750 range. Also urine was infected with the blood and white cells and bacteria and some mild acute kidney injury which the resolved with hydration her sodium stayed at 150 fluids use were half-normal saline at 125 an hour with 20 of K her potassium is been replaced and is slightly better from 3.3-3.5. Her white count is improved on ceftriaxone 2 g. Patient today's is comfortable not in pain I discussed the case with urology at [facility] Dr. Nuno has accepted her in transfer to for further treatment of her kidney stone I also let him know that his her her lipase is now better at 350 and her sodium is still at 150 and I have no etiology for pancreatitis she has no gallbladder and on ultrasound, and bile duct was within normal limits none of her Meds to my knowledge cause pancreatitis. I discussed the case with the patient which agreed with the above plan On the date of discharge, the patient was examined: Gen.: No acute distress, alert, nontoxic Heart: Regular rate and rhythm, no murmurs, clicks, gallops, or rubs Lungs: Clear to auscultation bilaterally, breathing is nonlabored Abdomen/GI: Normal tones on auscultation, soft, nontender, nondistended Musculoskeletal/extremities: No clubbing, cyanosis, or edema Vitals reviewed and are listed below Vital Signs (24 hrs) Temp Pulse Resp BP Pulse Ox 02/02/17 08:28 97 F 81 12 113/71 93 02/02/17 07:00 81 14 02/02/17 04:34 98.0 F 79 18 105/66 96 02/02/17 01:00 97.8 F 86 20 126/82 95 02/02/17 00:56 96.3 F L 109 H 18 145/88 95 02/01/17 22:29 96.3 F L 109 H 18 145/88 95 Assessment and Plan: 1. As per discharge assessments above 2. Disposition: Transferred to [facility] Active Medications Generic Name Dose Route Start Last Admin Trade Name Freq PRN Reason Stop Dose Admin Hydrocodone Bitart/Acetaminophen 1 - 2 tab 02/02/17 00:55 [place] 5/325 Tab PO Q4H PRN Pain Heparin Sodium (Porcine) 5,000 unit 02/02/17 01:00 02/02/17 08:56 Heparin Inj SUBCUT 5,000 unit Q8H NIRANJAN Administration Hydromorphone HCl 2 mg 02/02/17 00:55 02/02/17 09:37 Dilaudid Inj IVP 2 mg Q4H PRN Administration Pain Sodium Chloride 25 mls @ 200 mls/hr 02/02/17 00:55 Normal Saline 0.9% IV .Post Infusion PRN Flush Potassium Chloride/Sodium Chloride 1,000 mls @ 125 mls/hr 02/02/17 00:55 10:16 Pot Chl 20meq + 1/2ns PRIMARY IV 125 mls/hr .Q8H NIRANJAN Administration Lidocaine HCl 0.5 ml 02/02/17 00:55 Lidocaine Buffered Inj SUBD ONCE PRN IV Starts Ondansetron HCl 4 mg 02/02/17 00:55 Zofran Inj IVP Q6H PRN NAUSEA / VOMITING Sodium Chloride 5 - 20 ml 02/02/17 00:55 Saline Flush IVP BID PRN Flush 3. Condition on discharge, stable and improved. 4. Diet: regular diet 5. Activities: resume normal activities 6. Follow-Up: 1. PCP 2. 7. Medications at the Time of Discharge: Home Medications Medication Instructions Recorded Confirmed Type cefTRIAXone Inj [Rocephin Inj] 2 gm IV ONCE (ED) vial 02/02/17 Rx 3 Generic Name Dose Route Start Last Admin Trade Name Freq PRN Reason Stop Dose Admin Hydrocodone Bitart/Acetaminophen 1 - 2 tab 02/02/17 00:55 [place] 5/325 Tab PO Q4H PRN Pain Heparin Sodium (Porcine) 5,000 unit 02/02/17 01:00 02/02/17 08:56 Heparin Inj SUBCUT 5,000 unit Q8H NIRANJAN Administration Hydromorphone HCl 2 mg 02/02/17 00:55 02/02/17 09:37 Dilaudid Inj IVP 2 mg Q4H PRN Administration Pain Sodium Chloride 25 mls @ 200 mls/hr 02/02/17 00:55 Normal Saline 0.9% IV .Post Infusion PRN Flush Potassium Chloride/Sodium Chloride 1,000 mls @ 125 mls/hr 02/02/17 00:55 10:16 Pot Chl 20meq + 1/2ns PRIMARY IV 125 mls/hr .Q8H NIRANJAN Administration Lidocaine HCl 0.5 ml 02/02/17 00:55 Lidocaine Buffered Inj SUBD ONCE PRN IV Starts Ondansetron HCl 4 mg 02/02/17 00:55 Zofran Inj IVP Q6H PRN NAUSEA / VOMITING Sodium Chloride 5 - 20 ml 02/02/17 00:55 Saline Flush IVP BID PRN Flush Intake and Output (24hr x 4 totals) 01/30/17 01/31/17 02/01/17 02/02/17 11:59 11:59 11:59 11:59 Intake Total 400 / 400 Output Total 950 / 950 Balance -550 / -550 Weight Obtain Weight Start: 02/02/17 00: 56 Freq: QAM Status: Active Protocol: Document 02/02/17 05:58 [id number] (Rec: 02/02/17 05:58 [id number]) 8. Time, care, counseling and coordination of care for this discharge is greater than 30 minutes. Past Medical History Tobacco Use: Current Every Day Smoker In the Past 12 Months, Have Used or Abuse Any of the Following Substance: None Medication / Allergies Home Medications: Home Medications Medication Instructions Recorded Confirmed Type cefTRIAXone Inj [Rocephin Inj] 2 gm IV ONCE (ED) vial 02/02/17 Rx Allergies/Adverse Reactions: Allergies 3 Allergy/AdvReac Type Severity Reaction Status Date / Time fentanyl Allergy NOT Verified 02/02/17 06:34 APPLICABLE ibuprofen Allergy NOT Verified 02/02/17 06:34 APPLICABLE ketorolac [From Toradol] Allergy NOT Verified 02/02/17 06:34 APPLICABLE Latex, Natural Rubber Allergy NOT Verified 02/02/17 06:34 APPLICABLE Exam - Vitals Vital Signs: Vital Signs Temperature 96.3 F Temperature Source Temporal Artery Scan Pulse Rate [Pulse Oximeter] 109 Respiratory Rate 18 Blood Pressure [Left Arm] 145/88 Pulse Ox 95 Oxygen Delivery Method Room Air Height 5 ft 9 in Weight 190 lb Results - Labs CBC and BMP: 02/02/17 06:03 02/02/17 06:03 Assessment and Plan - Patient Problems (1) Stone in kidney Current Visit: Yes Status: Acute Comment: hydrate 1/2 ns with 20 k 125cc hour Code(s): N20.0 - Calculus of kidney (2) Abdominal pain Current Visit: No Status: Acute Comment: sec to pancreatitis no pain on right Code(s): R10.9 - Unspecified abdominal pain (3) Cystitis Current Visit: No Status: Acute Comment: iv rochephin Code(s): N30.90 - Cystitis, unspecified without hematuria (4) Hypokalemia Current Visit: No Status: Acute Comment: replace Code(s): E87.6 - Hypokalemia (5) Urinary tract infection Current Visit: Yes Status: Acute Comment: iv abx Code(s): N39.0 - Urinary tract infection, site not specified (6) CHRIS (acute kidney injury) Current Visit: Yes Status: Acute Comment: most likely pre renal hydrate and repeat labs in am Code(s): N17.9 - Acute kidney failure, unspecified
[2017-02-02] MEDS ORDERED: ONDANSETRON 4 MG/2 ML VIAL IVP PRN (00:55)
[2017-02-02] MEDS ORDERED: HYDROcodone-APAP 5 MG -325 MG TABLET PO PRN (00:55)
[2017-02-02] MEDS ORDERED: NORMAL SALINE 10 ML SYRINGE FLUSH IVP PRN (00:55)
[2017-02-02] MEDS ORDERED: LIDOCAINE W/ SODIUM BICARB 0.5 ML SYR SUBD PRN (00:55)
[2017-02-02] MEDS: HEPARIN 5000 UNIT/1 ML SUBCUT SCH ×2 (01:27→08:56)
[2017-02-02] MEDS: HYDROmorphone 2 MG/1 ML IVP PRN ×3 (01:28→09:37)
[2017-02-02] MEDS: 1/2NS + 20mEq KCL 1,000 ML PRIMARY IV SCH ×2 (01:28→10:16)
[2017-02-02 07:10] LABS: Hematocrit [HCT] 38.5 % (37.0-47.0); Hemoglobin [HGB] 12.9 g/dL (12.0-16.0); MEAN CORPUSCULAR HEMOGLOBIN 34.1 PG (27-31); MEAN CORPUSCULAR HGB CONC 33.5 g/dL (33-37); MEAN CORPUSCULAR VOLUME 102 FL (81-99); RED BLOOD COUNT 3.78 10^6/uL (4.20-5.40)
[2017-02-02 07:11] LABS: BASOPHILS # (AUTO) 0.09 10*3/UL; BASOPHILS % (AUTO) 0.8 % (0-1); EOSINOPHILS # (AUTO) 0.24 10*3/UL; EOSINOPHILS % (AUTO) 2.3 % (0-8); LYMPHOCYTES # (AUTO) 3.39 10*3/uL; MEAN PLATELET VOLUME 7.9 FL (7.4-12.2); MONOCYTES # (AUTO) 0.89 10*3/UL (0.3-0.8); MONOCYTES % (AUTO) 8.4 % (5-15); NEUTROPHILS # (AUTO) 6.02 10*3/UL; NEUTROPHILS % (AUTO) 56.6 % (50-80); PLATELET MORPHOLOGY COMMENT NORMAL MORPHOLOGY (NORM); RBC MORPHOLOGY COMMENT NORMAL MORPHOLOGY (NORM); WBC MORPHOLOGY COMMENT NORMAL MORPHOLOGY (NORM)
[2017-02-02 07:13] LABS: BLOOD UREA NITROGEN 16 mg/dL (7-22); LIPASE 350 IU/L (23-300); SERUM ALBUMIN 3.4 g/dL (3.5-4.8)
[2017-02-02 08:29] VITALS: RESP 12
[2017-02-02 11:12] VITALS: BP 111/68; TEMP 97.1; O2SAT 94
--- NOTE | 2017-02-02 16:00 | DI ---
ABDOMINAL ULTRASOUND, 02/02/2017 7:00 AM: Clinical History: Pancreatitis. Previous Exam: None at this facility. Scans are performed through the right and left upper quadrants in multiple projections. The patient is status post cholecystectomy. Common bile duct measures 4 mm. The liver, spleen, and le ft kidney are normal. The right kidney is unremarkable except for mild hydronephrosis. Only the head and neck of the pancreas are visualized and those portions are normal. The IVC and aorta are normal. READIN. Only the head and neck of the pancreas are identified in those portions are normal. The patient i s status post cholecystectomy and the common bile duct measures 4 mm. 2. There is mild right hydronephrosis and the right kidney is otherwise normal. The left kidney is n ormal. 3. The liver, spleen, IVC, and aorta are normal.
== END 2017-02-02 12:14 | disposition short-term general hospital (02) | DRG 693 ==
LOC: ER 22:29 → MED/SURG 02-02 00:22
PROVIDERS: ADMIT Internal Medicine; ATTEND Internal Medicine